=== PATIENT | male | born 1955 | race Hispanic/Latino ===

== ENCOUNTER 2018-02-17 01:10 | Emergency (ER) | payer BC ==
[2018-02-17 01:46] LABS: Absolute Monocytes 0.6 K/uL (0.1-1.3); Basophils % 0.4 % (0-1.3); Eosinophils % 1.5 % (0-4.4); Hematocrit 41.6 % (39.6-49.0); Lymphocytes % 40.6 % (15.3-44.8); MCH 30.6 pg (27.0-35.0); MCV 88.2 fL (80-100); MPV 9.5 fL (7.6-11.3); RBC Red Blood Cell Count 4.72 M/uL (4.33-5.43)
[2018-02-17 01:48] LABS: Protime INR 0.96
[2018-02-17 02:21] LABS: ALT/SGPT 26 U/L (12-78); AST/SGOT 19 U/L (15-37); Albumin 3.7 g/dL (3.4-5.0); Alkaline Phosphatase 123 U/L (45-117); BUN Blood Urea Nitrogen 23 mg/dL (7-18); Bicarbonate 27 mmol/L (21-32); Bilirubin Direct < 0.1 mg/dL (0-0.2); Bilirubin Total 0.2 mg/dL (0.2-1.0); CKMB Creatine Kinase MB 1.1 ng/mL (0.3-3.6); Creatine Phosphokinase 76 U/L (39-308); Glucose Level 130 mg/dL (74-106); Magnesium 2.3 mg/dL (1.8-2.4); NT PRO-BNP 67 pg/mL (<125); Potassium 3.4 mmol/L (3.5-5.1); Protein, Total 7.9 g/dL (6.4-8.2); Sodium Level 139 mmol/L (136-145)
--- NOTE | 2018-02-17 02:28 | EDPHYS ---
Physician Documentation [facility] Name: Michael Putnam Age: 62 yrs Sex: Male : 1955 Arrival Date: 02/17/2018 Time: 01:10 Bed 15 Private MD: ED Physician Yousuf Ortega HPI: 02/17 01:28 This 62 yrs old Male presents to ER via Unassigned with complaints of Chest ps1 Pain. 01:28 patient was at home relaxing and started to have substernal non-radiating chest pain ps1 that started at 11 pm. He has a history of hypertension and NIDDM. No remitting or exacerbating factors. Pain moderate. No DVT symptoms. No RAH. . Historical: - Allergies: :35 No Known Allergies; ea - Home Meds: :35 oral diabetic meds [Active]; ea - Immunization history:: Adult Immunizations up to date. - Social history:: Smoking status: Patient/guardian denies using tobacco. - Ebola Screening: : No symptoms or risks identified at this time. ROS: 01:28 Constitutional: Negative for fever, chills, and weight loss, Eyes: Negative for injury, ps1 pain, redness, and discharge, Neck: Negative for injury, pain, and swelling, Respiratory: Negative for shortness of breath, cough, wheezing, and pleuritic chest pain, Abdomen/GI: Negative for abdominal pain, nausea, vomiting, diarrhea, and constipation, Back: Negative for injury and pain, MS/Extremity: Negative for injury and deformity, Skin: Negative for injury, rash, and discoloration, Neuro: Negative for headache, weakness, numbness, tingling, and seizure. 01:28 Cardiovascular: Positive for chest pain. Exam: 01:28 Constitutional: This is a well developed, well nourished patient who is awake, alert, ps1 and in no acute distress. Head/Face: Normocephalic, atraumatic. Eyes: Pupils equal round and reactive to light, extra-ocular motions intact. Lids and lashes normal. Conjunctiva and sclera are non-icteric and not injected. Chest/axilla: Normal chest wall appearance and motion. Nontender with no deformity. No lesions are appreciated. Cardiovascular: Regular rate and rhythm. No gallops, murmurs, or rubs. Normal PMI, no JVD. No pulse deficits. Respiratory: Lungs have equal breath sounds bilaterally, clear to auscultation and percussion. No rales, rhonchi or wheezes noted. No increased work of breathing, no retractions or nasal flaring. Abdomen/GI: Soft, non-tender, with normal bowel sounds. No distension or tympany. No guarding or rebound. No evidence of tenderness throughout. Skin: Warm, dry with normal turgor. Normal color with no rashes, no lesions, and no evidence of cellulitis. MS/ Extremity: Pulses equal, no cyanosis. Neurovascular intact. Full, normal range of motion. Neuro: Awake and alert, GCS 15, oriented to person, place, time, and situation. Cranial nerves II-XII grossly intact. Sensory grossly intact. Psych: Awake, alert, with orientation to person, place and time. Behavior, mood, and affect are within normal limits. Vital Signs: 01:33 BP 159 / 82; Pulse 71; Resp 18; Temp 98.3(O); Pulse Ox 100% on R/A; Weight 72.57 kg; ea Height 5 ft. 4 in. (162.56 cm); Pain 6/10; 02:30 BP 143 / 88; Pulse 62; Resp 18; Pulse Ox 99% ; ea 03:24 BP 140 / 83; Pulse 60; Resp 18; Temp 97.6; Pulse Ox 97% ; Pain 0/10; ea 01:33 Body Mass Index 27.46 (72.57 kg, 162.56 cm) ea MDM: 01:30 Patient medically screened. ps1 02:28 HEART Score: History: Slightly Suspicious (0), ECG: Normal (0), Age: > 45 and < 65 ps1 years (1), Risk Factors: 1 or 2 risk factors (1), Troponin: < or = 1 x Normal Limit (0), Total Score =. Data reviewed: vital signs, nurses notes, lab test result(s), cardiac enzymes, EKG, radiologic studies, and as a result, I will discharge patient. 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 02/17 01:20 Order name: Basic Metabolic Panel; Complete Time: 02:24 jd3 20 01:20 Order name: CBC with Diff; Complete Time: :02/17 01:20 Order name: Ckmb; Complete Time: :02/17 01:20 Order name: CPK; Complete Time: :02/17 01:20 Order name: LFT's; Complete Time: 02:02/17 01:20 Order name: Magnesium; Complete Time: 02:02/17 01:20 Order name: NT PRO-BNP; Complete Time: :02/17 01:20 Order name: PT-INR; Complete Time: :02/17 01:20 Order name: Ptt, Activated; Complete Time: :02/17 01:20 Order name: Troponin (emerg Dept Use Only); Complete Time: :02/17 01:20 Order name: XRAY Chest (1 view) 02/17 01:20 Order name: EKG; Complete Time: :02/17 01:20 Order name: Cardiac monitoring; Complete Time: 02/17 01:20 Order name: EKG - Nurse/Tech; Complete Time: 02/17 01:20 Order name: IV Saline Lock; Complete Time: 02/17 01:20 Order name: Labs collected and sent; Complete Time: 02/17 01:20 Order name: O2 Per Protocol; Complete Time: 02/17 01:20 Order name: O2 Sat Monitoring; Complete Time: EC:20 Rate is 76 beats/min. Rhythm is regular. QRS [place] is Normal. GA interval is normal. QRS ps1 interval is normal. QT interval is normal. No Q waves. T waves are Normal. No ST changes noted. Clinical impression: Normal ECG. Interpreted by me. Administered Medications: No medications were administered Disposition: 02/17/18 02:27 Discharged to Home. Impression: Chest pain, unspecified. - Condition is Stable. - Discharge Instructions: Nonspecific Chest Pain, Form - Excuse from Work, School, or Physical Activity. - Family Work Release, Medication Reconciliation Form, Thank You Letter, Antibiotic Education, Prescription Opioid Use, Work release form form. - Follow up: Jonathon Gordon MD; When: 1 week; Reason: Further diagnostic work-up, Re-evaluation by your physician. Follow up: Emergency Department; When: As needed; Reason: Trouble breathing, Worsening of condition. - Problem is new. - Symptoms have improved. Signatures: Dispatcher [employer] EDMS Zhanna Desouza RN RN ea Davies, Jonathon, RN RN jd3 Singer, Phillip, MD MD ps1 Corrections: (The following items were deleted from the chart) 03:30 02:27 02/17/2018 02:27 Discharged to Home. Impression: Chest pain, unspecified. ea Condition is Stable. Forms are Medication Reconciliation Form, Thank You Letter, Antibiotic Education, Prescription Opioid Use. Follow up: Jonathon Gordon; When: 1 week; Reason: Further diagnostic work-up, Re-evaluation by your physician. Follow up: Emergency Department; When: As needed; Reason: Trouble breathing, Worsening of condition. Problem is new. Symptoms have improved. ps1
--- NOTE | 2018-02-17 02:28 | ER ---
Nurse's Notes [facility] Name: Michael Putnam Age: 62 yrs Sex: Male : 1955 Arrival Date: 02/17/2018 Time: 01:10 Bed 15 Private MD: Diagnosis: Chest pain, unspecified Presentation: 02/17 01:29 Presenting complaint: Patient states: Patient reports he started having left chest pain ea that started at 11pm. Pt denies previous history of CP. Reports it is a 6/10 reports it's a dull constant pain. Transition of care: patient was not received from another setting of care. Onset of symptoms was February 17, 2018. Risk Assessment: Do you want to hurt yourself or someone else? Patient reports no desire to harm self or others. Initial Sepsis Screen: Does the patient meet any 2 criteria? No. Patient's initial sepsis screen is negative. Does the patient have a suspected source of infection? No. Patient's initial sepsis screen is negative. Care prior to arrival: None. 01:29 Method Of Arrival: Ambulatory ea 01:29 Acuity: ADY 3 ea Triage Assessment: 01:31 General: Appears in no apparent distress. Behavior is calm, cooperative, appropriate ea for age. Pain: Complains of pain in left breast Pain does not radiate. Pain currently is 6 out of 10 on a pain scale. Quality of pain is described as dull, Pain began 4 hours ago. Is continuous. EENT: No signs and/or symptoms were reported regarding the EENT system. Neuro: Level of Consciousness is awake, alert, obeys commands, Oriented to person, place, time, situation. Cardiovascular: Heart tones S1 S2 present Patient's skin is warm and dry. Respiratory: Airway is patent Respiratory effort is even, unlabored, Respiratory pattern is regular, symmetrical. GI: No signs and/or symptoms were reported involving the gastrointestinal system. : No signs and/or symptoms were reported regarding the genitourinary system. Derm: Skin is pink, warm \T\ dry. Historical: - Allergies: 01:35 No Known Allergies; ea - Home Meds: 01:35 oral diabetic meds [Active]; ea - Immunization history:: Adult Immunizations up to date. - Social history:: Smoking status: Patient/guardian denies using tobacco. - Ebola Screening: : No symptoms or risks identified at this time. Screenin:33 Abuse screen: Denies threats or abuse. Nutritional screening: No deficits noted. ea Tuberculosis screening: No symptoms or risk factors identified. Fall Risk None identified. Assessment: 01:36 Reassessment: see triage assessment. ea 02:55 Reassessment: Patient and/or family updated on plan of care and expected duration. Pain ea level reassessed. Patient is alert, oriented x 3, equal unlabored respirations, skin warm/dry/pink. Patient states feeling better. Patient states symptoms have improved. 03:23 Reassessment: Patient and/or family updated on plan of care and expected duration. Pain ea level reassessed. Patient is alert, oriented x 3, equal unlabored respirations, skin warm/dry/pink. Discharge instructions given to patient, verbalized the understanding of instructions. Patient denies pain at this time. Patient states feeling better. Patient states symptoms have improved. Vital Signs: 01:33 BP 159 / 82; Pulse 71; Resp 18; Temp 98.3(O); Pulse Ox 100% on R/A; Weight 72.57 kg; ea Height 5 ft. 4 in. (162.56 cm); Pain 6/10; 02:30 BP 143 / 88; Pulse 62; Resp 18; Pulse Ox 99% ; ea 03:24 BP 140 / 83; Pulse 60; Resp 18; Temp 97.6; Pulse Ox 97% ; Pain 0/10; ea 01:33 Body Mass Index 27.46 (72.57 kg, 162.56 cm) ea ED Course: 01:10 Patient arrived in ED. ds1 01:23 Yosuuf Ortega MD is Attending Physician. ps1 01:29 Zhanna Desouza RN is Primary Nurse. ea 01:30 Inserted saline lock: 20 gauge in right antecubital area, using aseptic technique. jd3 Blood collected. 01:30 Patient maintains SpO2 saturation greater than 95% on room air. jd3 01:31 Triage completed. ea 01:31 Patient has correct armband on for positive identification. Bed in low position. Call jd3 light in reach. Side rails up X 1. Adult w/ patient. 01:32 quality assurance monitor body on. Pulse ox on. NIBP on. jd3 01:33 Arm band placed on. jd3 01:35 X-ray completed. Portable x-ray completed in exam room. Patient tolerated procedure kw well. 01:36 XRAY Chest (1 view) In Process Unspecified. EDMS 02:26 Jonathon Gordon MD is Referral Physician. ps1 03:26 No provider procedures requiring assistance completed. IV discontinued, intact, ea bleeding controlled, No redness/swelling at site. Pressure dressing applied. Administered Medications: No medications were administered Outcome: 02:27 Discharge ordered by MD. ps1 03:25 Condition: improved ea 03:25 Discharge instructions given to patient, Instructed on discharge instructions, follow up and referral plans. Demonstrated understanding of instructions, follow-up care. 03:30 Discharged to home ambulatory, with significant other. ea 03:30 Patient left the ED. ea Signatures: Dispatcher [employer] EDNJ Mary Pappas ds1 Maddison Dupont Elena RN RN Elie Garcia RN RN Yousuf Brock MD MD ps1 Corrections: (The following items were deleted from the chart) 03:27 03:23 Reassessment: Patient and/or family updated on plan of care and expected ea duration. Pain level reassessed. Patient is alert, oriented x 3, equal unlabored respirations, skin warm/dry/pink. Patient denies pain at this time. Patient states feeling better. Patient states symptoms have improved. ea
--- NOTE | 2018-02-17 07:48 | RAD REPORT ---
EXAM DESCRIPTION: Brendan Single View02/17/2018 1:36 am CLINICAL HISTORY: Chest pain COMPARISON: none FINDINGS: The lungs appear clear of acute infiltrate. The heart is normal size Deformity of the right clavicle secondary to an old fracture IMPRESSION: No acute abnormalities displayed
--- NOTE | 2018-02-17 07:49 | EKG ---
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
== END 2018-02-17 03:30 | disposition home or self-care (01) ==
LOC: ER 01:10
DX: R07.9 Chest pain, unspecified (principal); I10 Essential (primary) hypertension; E11.9 Type 2 diabetes mellitus without complications
CPT/HCPCS: 36415; 71045; 80048; 80076; 82550; 82553; 83735; 83880; 84484; 85025; 85610; 85730; 93005; 99285